=== PATIENT | female | born 1940 ===

== ENCOUNTER 2017-07-19 14:49 | Outpatient (CLI) | payer MEDICARE, OTHER ==
[~2017-07-19 14:49] MED LIST: CREON DR 24,001 EACH PO; HYZAAR 50-12.51 EACH ORAL; LORATADINE10 M1 PO; LORAZEPAM0.5 MG ORAL; OMEPRAZOLE20 M2 ORAL; SIMVASTATIN40 MG ORAL; SYNTHROID125 MCG ORAL; VITAMIN D250000 UNI1 ORAL; VOLTAREN100 G1 TP
[2017-07-19 15:20] VITALS: BP 115/46
--- NOTE | 2017-07-19 16:16 | GI Progress Note ---
Assessment/Plan Problems: (1) Small intestinal bacterial overgrowth ICD Codes: K63.89 - Other specified diseases of intestine SNOMED: 265655577 (2) Diverticulitis ICD Codes: K57.92 - Diverticulitis of intestine, part unspecified, without perforation or abscess without bleeding SNOMED: 938600078 (3) Diverticulosis ICD Codes: K57.90 - Diverticulosis of intestine, part unspecified, without perforation or abscess without bleeding SNOMED: 11767619 (4) Liver lesion ICD Codes: K76.9 - Liver disease, unspecified SNOMED: 444001070 (5) Submucosal lesion of stomach ICD Codes: K31.89 - Other diseases of stomach and duodenum SNOMED: 344915368 Status: stable Status Narrative Discussed with Dr. Moura. Assessment/Plan Xifaxin Bentyl prn Align Abdominal US needs repeat EUS, but deferred for now. will consider next visit RTC x 1 month or after imaging study Subjective Subjective L sided abdominal pain at night x 4 months Rx Omeprazole and Cipro given, but still having pain BM frequent, post meal last colonoscopy ?[address] Orourke Objective Last 24 Hour Vital Signs Date Time Temp Pulse Resp B/P (MAP) Pulse Ox O2 Delivery O2 Flow Rate FiO2 07/19/17 15:20 98.0 66 16 115/46 95 98.0 General Appearance: WD/WN, no apparent distress, alert Cardiovascular: normal rate Respiratory/Chest: normal breath sounds, no respiratory distress Abdominal Exam: normal bowel sounds, non tender, soft Extremities: normal range of motion, non-tender Zoraida Boland N.P. Jul 19, 2017 16:16
== END 2017-07-19 15:22 | disposition home or self-care (01) ==
LOC: PAN 14:49
DX: K57.92 Diverticulitis of intestine, part unspecified, without perforation or abscess without bleeding (principal); K63.89 Other specified diseases of intestine; K57.90 Diverticulosis of intestine, part unspecified, without perforation or abscess without bleeding; K76.9 Liver disease, unspecified; K31.89 Other diseases of stomach and duodenum
CPT/HCPCS: 99212

== ENCOUNTER 2017-09-21 11:36 | Outpatient (CLI) | payer MEDICARE, OTHER ==
[2017-09-21 11:50] VITALS: BP 140/62
--- NOTE | 2017-09-21 16:19 | GI Progress Note ---
Assessment/Plan Problems: (1) GERD (gastroesophageal reflux disease) ICD Codes: K21.9 - Gastro-esophageal reflux disease without esophagitis SNOMED: 930988263 (2) Liver hemangioma ICD Codes: D18.03 - Hemangioma of intra-abdominal structures SNOMED: 48601881 (3) Small intestinal bacterial overgrowth ICD Codes: K63.89 - Other specified diseases of intestine SNOMED: 471613275 (4) Diverticulosis ICD Codes: K57.90 - Diverticulosis of intestine, part unspecified, without perforation or abscess without bleeding SNOMED: 46787304 (5) Liver lesion ICD Codes: K76.9 - Liver disease, unspecified SNOMED: 563040771 (6) Submucosal lesion of stomach ICD Codes: K31.89 - Other diseases of stomach and duodenum SNOMED: 333339936 Status: stable Status Narrative Seen with Dr. Moura. Assessment/Plan Recommend Align s/p xifaxan with improvement refused repeat EUS RTC x 3 months/prn Subjective Subjective Abdominal pain, LLQ occasional Abdominal bloating, has decreased after 2 weeks of xifaxan Objective Last 24 Hour Vital Signs Date Time Temp Pulse Resp B/P (MAP) Pulse Ox O2 Delivery O2 Flow Rate FiO2 09/21/17 11:50 97.4 59 16 140/62 98 97.4 General Appearance: WD/WN, no apparent distress, alert Cardiovascular: normal rate Respiratory/Chest: normal breath sounds, no respiratory distress Abdominal Exam: normal bowel sounds, non tender, soft Extremities: normal range of motion, non-tender Gavin Boland [employer] September 21, 2017 16:19
== END 2017-09-21 12:11 | disposition home or self-care (01) ==
LOC: PAN 11:36
DX: K21.9 Gastro-esophageal reflux disease without esophagitis (principal); D18.03 Hemangioma of intra-abdominal structures; K63.89 Other specified diseases of intestine; K57.90 Diverticulosis of intestine, part unspecified, without perforation or abscess without bleeding; K76.9 Liver disease, unspecified; K31.89 Other diseases of stomach and duodenum
CPT/HCPCS: 99212